=== PATIENT | male | born 1995 | race Caucasian/White ===

== ENCOUNTER 2016-04-09 09:34 | Day surgery (SDC) | payer OTHER ==
[~2016-04-09] VITALS: Ht 182.9 cm; Wt 77.1 kg
[~2016-04-09 09:34] MED LIST: CEFU250T PO
--- OUTSIDE RECORDS SUMMARY | 2016-04-09 09:41 | XMS REPORT | Continuity of Care Document ---
Author Author [facility] Organization [facility] Address Unknown Phone Unavailable Care Team Providers Care Oral Surgery Technician Name Role Phone NO, LOCAL PHYSICIAN PCP Unavailable Insurance Providers Payer Name Policy Number Subscriber Name Relationship Self Pay Breanne French 19 Self / Same As Patient Advance Directives Directive Response Recorded Date/Time Advance Directives No 09/28/15 7:10pm Resuscitation Status Full Code 09/28/15 7:10pm Chief Complaint and Reason for Visit Chief Complaint General Problems/Pain Reason for Visit [id number] Problems Active Problems Medical Problem Onset Date Status Inguinal adenopathy Unknown Acute UTI (urinary tract infection) Unknown Acute Medications Current Home Medications Medication Dose Units Route Directions Days/Qty Instructions Start Date Cefuroxime Axetil 250 Mg 250 Mg Oral Every 12 Hours 20 09/28/15 Social History Social History Problem Response Recorded Date/Time Alcohol Use Denies Use 09/28/2015 7:10pm Recreational Drug Use No 09/28/2015 7:10pm Recent Foreign Travel No 09/28/2015 7:10pm Recent Infectious Disease Exposure No 09/28/2015 7:10pm Hospitalization with Isolation Denies 09/28/2015 7:10pm Smoking Status Never a Smoker 09/28/2015 7:10pm Query Response Start Date Stop Date Smoking Status Never a Smoker Hospital Discharge Instructions No hospital discharge instructions. Plan of Care Discharge Date 09/28/15 8:56pm Disposition 01 HOME, SELF-CARE Condition at Discharge Stable Instructions/Education Provided Urinary Tract Infection in Men (ED) Lymphadenopathy (ED) Prescriptions See Medication Section Referrals LOPEZ BURNETT MD - Additional Instructions/Education All discharge instructions reviewed with patient and/or family. Voiced understanding. RECOMMEND 2 ALEVE EVERY 8 HOURS FOR LYMPH NODE SWELLING AND PAIN. TAKE UNTIL COMPLETELY BETTER. WILL NEED TO FOLLOW UP WITH DR. BURNETT (CONTACT INFO GIVEN) IF SYMPTOMS PERSIST DESPITE PRESCRIBED TREATMENT. Functional Status No functional status results. Allergies, Adverse Reactions, Alerts No known allergies. Immunizations No immunization records. Vital Signs Acute Vital Signs Vital Response Date/Time Temperature (Fahrenheit) 97.7 degrees F (97.6 - 99.5) 09/28/2015 7:10pm Temperature (Calculated Celsius) 36.92852 degrees C (36.4 - 37.5) 09/28/2015 7:10pm Temperature Source Temporal 09/28/2015 7:10pm Pulse Rate (Adolescent 12-19yrs) 97 bpm (56 - 106) 09/28/2015 8:56pm O2 Sat by Pulse Oximetry 97 % (88 - 100) 09/28/2015 8:56pm Respiratory Rate (Adolescent 12-19yrs) 18 bpm (15 - 20) 09/28/2015 8:56pm Blood Pressure / Blood Pressure Systolic (Adolescent 12-19yrs) 126 mm Hg (115 - 120) 2015 8:56pm Pain Numeric Pain Scale 1 09/28/2015 8:56pm Height (Feet) 6 feet 09/28/2015 7:10pm Height (Calculated Centimeters) 182.656761 cm 09/28/2015 7:10pm Weight (Pounds) 165 pounds 09/28/2015 7:10pm Weight (Calculated Kilograms) 74.115657 kilograms 09/28/2015 7:10pm Height 6 ft 0 in Weight 165 lb Body Mass Index 22.4 kg/m^2 Results Laboratory Results Test Name Result Units Flags Reference Collection Date/Time Result Date/ Time Comments White Blood Count 6.7 10^3/uL 4.3-11.0 09/28/2015 7:54pm 09/28/2015 8: 06pm Red Blood Count 5.23 10^6/uL 4.35-5.85 09/28/2015 7:54pm 09/28/2015 8: 06pm Hemoglobin 15.7 G/DL 13.3-17.7 09/28/2015 7:54pm 09/28/2015 8:06pm Hematocrit 43 % 40-54 09/28/2015 7:54pm 09/28/2015 8:06pm Mean Corpuscular Volume 82 FL 80-99 09/28/2015 7:54pm 09/28/2015 8: 06pm Mean Corpuscular Hemoglobin 30 PG 25-34 09/28/2015 7:54pm 09/28/2015 8: 06pm Mean Corpuscular Hemoglobin Concent 37 G/DL H 32-36 09/28/2015 7:54pm 8:06pm Red Cell Distribution Width 12.8 % 10.0-14.5 09/28/2015 7:54pm 2015 8:06pm Platelet Count 298 10^3/uL 130-400 09/28/2015 7:54pm 09/28/2015 8:06pm Mean Platelet Volume 10.5 FL H 7.4-10.4 09/28/2015 7:54pm 09/28/2015 8: 06pm Neutrophils (%) (Auto) 56 % 42-75 09/28/2015 7:54pm 09/28/2015 8:06pm Lymphocytes (%) (Auto) 30 % 12-44 09/28/2015 7:54pm 09/28/2015 8:06pm Monocytes (%) (Auto) 13 % H 0-12 09/28/2015 7:54pm 09/28/2015 8:06pm Eosinophils (%) (Auto) 1 % 0-10 09/28/2015 7:54pm 09/28/2015 8:06pm Basophils (%) (Auto) 0 % 0-10 09/28/2015 7:54pm 09/28/2015 8:06pm Neutrophils # (Auto) 3.7 X 10^3 1.8-7.8 09/28/2015 7:54pm 09/28/2015 8: 06pm Lymphocytes # (Auto) 2.0 X 10^3 1.0-4.0 09/28/2015 7:54pm 09/28/2015 8: 06pm Monocytes # (Auto) 0.9 X 10^3 0.0-1.0 09/28/2015 7:54pm 09/28/2015 8: 06pm Eosinophils # (Auto) 0.1 10^3/uL 0.0-0.3 09/28/2015 7:54pm 09/28/2015 8 :06pm Basophils # (Auto) 0.0 10^3/uL 0.0-0.1 09/28/2015 7:54pm 09/28/2015 8: 06pm Urine Color YELLOW 09/28/2015 7:54pm 09/28/2015 8:37pm Urine Clarity SLIGHTLY CLOUDY 09/28/2015 7:54pm 09/28/2015 8:37pm Urine pH 6 5-9 09/28/2015 7:54pm 09/28/2015 8:37pm Urine Specific [place] 1.020 1.016-1.022 09/28/2015 7:54pm 2015 8:37pm Urine Protein 2+ * NEGATIVE 09/28/2015 7:54pm 09/28/2015 8:37pm Urine Glucose (UA) NEGATIVE NEGATIVE 09/28/2015 7:54pm 09/28/2015 8: 37pm Urine RBC (Auto) NEGATIVE NEGATIVE 09/28/2015 7:54pm 09/28/2015 8: 37pm Urine Ketones 1+ * NEGATIVE 09/28/2015 7:54pm 09/28/2015 8:37pm Urine Nitrite NEGATIVE NEGATIVE 09/28/2015 7:54pm 09/28/2015 8:37pm Urine Bilirubin NEGATIVE NEGATIVE 09/28/2015 7:54pm 09/28/2015 8: 37pm Urine Urobilinogen 1 MG/DL NORMAL 09/28/2015 7:54pm 09/28/2015 8:37pm Urine Leukocyte Esterase 2+ * NEGATIVE 09/28/2015 7:54pm 09/28/2015 8: 37pm Urine RBC NONE /HPF 09/28/2015 7:54pm 09/28/2015 8:37pm Urine WBC 25-50 /HPF * 09/28/2015 7:54pm 09/28/2015 8:37pm Urine Bacteria FEW /HPF * 09/28/2015 7:54pm 09/28/2015 8:37pm Urine Crystals NONE /LPF 09/28/2015 7:54pm 09/28/2015 8:37pm Urine Casts NONE /LPF 09/28/2015 7:54pm 09/28/2015 8:37pm Urine Mucus MODERATE /LPF * 09/28/2015 7:54pm 09/28/2015 8:37pm Urine Culture Indicated YES 09/28/2015 7:54pm 09/28/2015 8:37pm C-Reactive Protein High Sensitivity 0.74 MG/DL H 0.00-0.50 09/28/2015 7: 54pm 09/28/2015 8:25pm Procedures No known history of procedures. Encounters Encounter Location Arrival/Admit Date Discharge/Depart Date Attending Provider Departed Emergency Room [facility] 09/28/15 6:51pm 09/27 8:56pm JERRICA SHELDON DO Recent Diagnosis
[2016-04-09 10:27] LABS: BILIRUBIN,URINE NEGATIVE (NEGATIVE); KETONES,URINE NEGATIVE (NEGATIVE); LEUKOCYTE ESTERASE ,URINE NEGATIVE (NEGATIVE); NITRITE,URINE NEGATIVE (NEGATIVE); PH,URINE 6.5 (5-9); PROTEIN,URINE NEGATIVE (NEGATIVE); UROBILINOGEN,URINE NORMAL (NORMAL)
[2016-04-09 10:36] LABS: BASOPHILS # (AUTO) 0.1 10^3/uL (0.0-0.1); BASOPHILS % (AUTO) 1 % (0-10); EOSINOPHILS # (AUTO) 0.1 10^3/uL (0.0-0.3); EOSINOPHILS % (AUTO) 1 % (0-10); LYMPHOCYTES # (AUTO) 1.8 X 10^3 (1.0-4.0); LYMPHOCYTES % (AUTO) 21 % (12-44); MEAN CORPUSCULAR HEMOGLOBIN 29 PG (25-34); MEAN CORPUSCULAR HGB CONC 35 G/DL (32-36); MEAN CORPUSCULAR VOLUME 83 FL (80-99); MEAN PLATELET VOLUME 10.3 FL (7.4-10.4); MONOCYTES # (AUTO) 0.6 X 10^3 (0.0-1.0); MONOCYTES % (AUTO) 7 % (0-12); NEUTROPHILS # (AUTO) 5.8 X 10^3 (1.8-7.8); NEUTROPHILS % (AUTO) 70 % (42-75); PLATELET COUNT 268 10^3/uL (130-400); RED BLOOD COUNT 5.13 10^6/uL (4.35-5.85); RED CELL DISTRIBUTION WIDTH 13.6 % (10.0-14.5); WHITE BLOOD COUNT 8.3 10^3/uL (4.3-11.0)
[2016-04-09 10:54] LABS: ALANINE AMINOTRANSFERASE 45 U/L (0-55); ALBUMIN 4.6 G/DL (3.2-4.5); AMYLASE 92 U/L (25-125); ANION GAP 7 MMOL/L (5-14); ASPARTATE AMINO TRANSFERASE 29 U/L (5-34); BILIRUBIN,TOTAL 0.9 MG/DL (0.1-1.0); BLOOD UREA NITROGEN 13 MG/DL (7-18); BUN/CREATININE RATIO 15; CALCIUM 9.5 MG/DL (8.5-10.1); CARBON DIOXIDE 25 MMOL/L (21-32); CHLORIDE 106 MMOL/L (98-107); CREATININE SERUM 0.88 MG/DL (0.60-1.30); GFR ESTIMATED > 60; GLUCOSE 97 MG/DL (70-105); POTASSIUM 3.6 MMOL/L (3.6-5.0); SODIUM 138 MMOL/L (135-145); TOTAL PROTEIN 7.3 G/DL (6.4-8.2)
[2016-04-09] MEDS ORDERED: NS 100 ML (IVPB) BAG IV ONE (11:00)
[2016-04-09] MEDS ORDERED: KETOROLAC 30 MG/ML VIAL IVP ONE (11:00)
[2016-04-09] MEDS ORDERED: IOHEXOL 350 MG/ML 100 ML (OMNIPAQUE 350) VIAL IV ONE (11:00)
--- NOTE | 2016-04-09 11:02 | ED Abdominal Pain ---
General Chief Complaint: Abdominal/GI Problems Stated Complaint: LOWER RIGHT SIDE PAIN Source of Information: Patient Exam Limitations: No Limitations History of Present Illness Time Seen By Provider: 11:00 Initial Comments To ER with right lower quadrant abdominal pain. This began last night awakening him from sleep at about 1 or 2 a.m. Pain is become so intense that he 's nearly vomited a few times. He then was able to go back to sleep and awakened again this morning at around 8 or 9 and pain is again present quite intense. No diarrhea. No fevers or chills. No dysuria. No constipation last bowel movement was this morning and was normal. Timing/Duration: 12-24 Hours Severity/Quality: Moderate Location: RLQ Radiation: No Radiation Activities at Onset: None Associated Symptoms: Nausea/Vomiting Allergies and Home Medications Allergies Coded Allergies: No Known Drug Allergies (Unverified , 09/28/15) Home Medications No Active Prescriptions or Reported Meds Review of Systems Constitutional: see HPI EENTM: No Symptoms Reported Respiratory: No Symptoms Reported Cardiovascular: No Symptoms Reported Gastrointestinal: See HPI Abdominal PainDenies Diarrhea, Denies Nausea Genitourinary: No Symptoms Reported Musculoskeletal: no symptoms reported Skin: no symptoms reported Psychiatric/Neurological: No Symptoms Reported Endocrine: No Symptoms Reported Past Exgtmxc-Orarcy-Weoeln Hx Patient Social History Recent Foreign Travel: No Contact w/Someone Who Travel: No Surgeries HX Surgeries: No Respiratory Hx Respiratory Disorders: No Cardiovascular Hx Cardiac Disorders: No Neurological Hx Neurological Disorders: No Reproductive System Hx Reproductive Disorders: No Genitourinary Hx Genitourinary Disorders: No Gastrointestinal Hx Gastrointestinal Disorders: No Musculoskeletal Hx Musculoskeletal Disorders: No Endocrine Hx Endocrine Disorders: No HEENT HX ENT Disorders: No Cancer Hx Cancer: No Psychosocial Hx Psychiatric Problems: No Integumentary HX Skin/Integumentary Disorder: No Blood Transfusions Hx Blood Disorders: No Physical Exam Vital Signs VS - Last 72 Hours, by Label 04/09/16 04/09/16 04/09/16 10:10 10:15 11:09 Temp 97.5 96.9 Pulse 72 Resp 16 B/P 117/80 Pulse Ox 98 Capillary Refill : General Appearance: WD/WN no apparent distress HEENT: PERRL/EOMI normal ENT inspection Neck: non-tender full range of motion Respiratory: no respiratory distress no accessory muscle use Gastrointestinal: normal bowel sounds soft rebound tenderness (right lower quadrant) Extremities: normal range of motion non-tender Neurologic/Psychiatric: alert normal mood/affect oriented x 3 Skin: normal color warm/dry Progress/Results/Core Measures Results/Orders Lab Results Laboratory Tests Test 04/09/16 10:20 04/09/16 10:30 Range/Units Urine Bacteria NEGATIVE /HPF Urine Bilirubin NEGATIVE NEGATIVE Urine Casts NONE /LPF Urine Clarity CLEAR Urine Color YELLOW Urine Crystals NONE /LPF Urine Culture Indicated NO Urine Glucose (UA) NEGATIVE NEGATIVE Urine Ketones NEGATIVE NEGATIVE Urine Leukocyte Esterase NEGATIVE NEGATIVE Urine Mucus MODERATE H /LPF Urine Nitrite NEGATIVE NEGATIVE Urine Protein NEGATIVE NEGATIVE Urine RBC NONE /HPF Urine RBC (Auto) NEGATIVE NEGATIVE Urine Specific [place] 1.020 1.016-1.022 Urine Urobilinogen NORMAL NORMAL MG/DL Urine WBC NONE /HPF Urine pH 6.5 5-9 Alanine Aminotransferase (ALT/SGPT) 45 0-55 U/L Albumin 4.6 H 3.2-4.5 G/DL Alkaline Phosphatase 82 40-136 U/L Amylase Level 92 25-125 U/L Anion Gap 7 5-14 MMOL/L Aspartate Amino Transf (AST/SGOT) 29 5-34 U/L BUN/Creatinine Ratio 15 Basophils # (Auto) 0.1 0.0-0.1 10^3/uL Basophils (%) (Auto) 1 0-10 % Blood Urea Nitrogen 13 7-18 MG/DL Calcium Level 9.5 8.5-10.1 MG/DL Carbon Dioxide Level 25 21-32 MMOL/L Chloride Level 106 98-107 MMOL/L Creatinine 0.88 0.60-1.30 MG/DL Eosinophils # (Auto) 0.1 0.0-0.3 10^3/uL Eosinophils (%) (Auto) 1 0-10 % Estimat Glomerular Filtration Rate > 60 Glucose Level 97 70-105 MG/DL Hematocrit 43 40-54 % Hemoglobin 15.0 13.3-17.7 G/DL Lymphocytes # (Auto) 1.8 1.0-4.0 X 10^3 Lymphocytes (%) (Auto) 21 12-44 % Mean Corpuscular Hemoglobin 29 25-34 PG Mean Corpuscular Hemoglobin Concent 35 32-36 G/DL Mean Corpuscular Volume 83 80-99 FL Mean Platelet Volume 10.3 7.4-10.4 FL Monocytes # (Auto) 0.6 0.0-1.0 X 10^3 Monocytes (%) (Auto) 7 0-12 % Neutrophils # (Auto) 5.8 1.8-7.8 X 10^3 Neutrophils (%) (Auto) 70 42-75 % Platelet Count 268 130-400 10^3/uL Potassium Level 3.6 3.6-5.0 MMOL/L Red Blood Count 5.13 4.35-5.85 10^6/uL Red Cell Distribution Width 13.6 10.0-14.5 % Sodium Level 138 135-145 MMOL/L Total Bilirubin 0.9 0.1-1.0 MG/DL Total Protein 7.3 6.4-8.2 G/DL White Blood Count 8.3 4.3-11.0 10^3/uL My Orders Orders-XENIA PRIETO [employer]ULT[employer] Ct Abd/Pelv W (Appendicitis) (04/09/16 10:58) Ketorolac Injection (Toradol Injection) (04/09/16 11:00) Iohexol Injection (Omnipaque 350 Mg/Ml 1 (04/09/16 11:00) Ns (Ivpb) (Sodium Chloride 0.9% Ivpb Bag (04/09/16 11:00) Medications Given in ED Current Medications Medications Dose Ordered Sig/Mukul Route Start Time Stop Time Status Last Admin Dose Admin Iohexol 100 ml ONCE ONCE IV 04/09/16 11:00 04/09/16 11:10 DC 04/09/16 11:18 100 ML Ketorolac Tromethamine 30 mg ONCE ONCE IVP 04/09/16 11:00 04/09/16 11:01 DC 04/09/16 11:09 30 MG Sodium Chloride 100 ml ONCE ONCE IV 04/09/16 11:00 04/09/16 11:10 DC 04/09/16 11:18 80 ML Vital Signs/I&O Vital Sign - Last 12Hours 04/09/16 04/09/16 04/09/16 10:10 10:15 11:09 Temp 97.5 96.9 Pulse 72 Resp 16 B/P 117/80 Pulse Ox 98 Diagnostic Imaging Diagonstic Imaging: CT Comments NAME: BREANNE ZAMORA MED REC#: [id number] PT STATUS: REG ER : 1995 PHYSICIAN: XENIA PRIETO APRN ADMIT DATE: 04/09/16/ER Draft Date of Exam:04/09/16 CT ABD/PELV W (APPENDICITIS) PROCEDURE: CT abdomen and pelvis with contrast, rule out appendicitis. TECHNIQUE: Multiple contiguous axial images were obtained through the abdomen and pelvis after the administration of intravenous contrast. INDICATION: Right lower quadrant abdominal pain. Nausea. COMPARISON: None FINDINGS: Included views of the lung bases are clear. CT ABDOMEN: There is acute appendicitis. The appendix is abnormally distended measuring 14 mm in diameter. Multiple appendicoliths are noted within the lumen of the appendix. There is also mild stranding of the periappendiceal fat. Small amount of free fluid is noted within the lower pelvis. There is no loculated fluid collection or free air. There is no pneumatosis nor portal venous gas. Proximal small bowel loops are nondistended. The kidneys, adrenal glands, spleen, pancreas, and liver and have a normal CT appearance. No abnormal mesenteric or retroperitoneal adenopathy is seen. Bony structures show no acute abnormalities. CT PELVIS: Again, there is trace free fluid within the lower pelvis. There is no loculated fluid collection or free air. Urinary bladder is grossly unremarkable. No abnormal lymph nodes are seen. Bony structures show no acute abnormalities. IMPRESSION: 1. Acute appendicitis. 2. Small amount of free fluid within the pelvis, but no free air or loculated air-fluid collection. Report was called to Xenia Prieto APRN [facility] ER by nathaniel at 11:55 am. Dictated on workstation # [id number] Dict: 04/09/16 1145 Trans: 04/09/16 1153 NATHANIEL [id number] Interpreted by: MEHDI CELESTE Electronically signed by: Departure Communication Progress Notes 1206-I spoke with Dr. Tsang who will be down to see the patient. Impression Impression: Primary Impression: Acute appendicitis Qualified Code: K35.3 - Acute appendicitis with localized peritonitis Disposition: ADMITTED INPATIENT Condition: Stable Decision to Admit Reason: Admit from ER (General) Decision to Admit/Date: Apr 09, 2016 Time/Decision to Admit Time: 11:45 Departure-Patient Inst. Referrals: ALVIN DEGROOT MD (PCP/Family) Primary Care Physician Scripts No Active Prescriptions or Reported Meds XENIA PRIETO APRN Apr 09, 2016 11:02
--- NOTE | 2016-04-09 11:54 | Diagnostic Imaging Report ---
PROCEDURE: CT abdomen and pelvis with contrast, rule out appendicitis. TECHNIQUE: Multiple contiguous axial images were obtained through the abdomen and pelvis after the administration of intravenous contrast. INDICATION: Right lower quadrant abdominal pain. Nausea. COMPARISON: None FINDINGS: Included views of the lung bases are clear. CT ABDOMEN: There is acute appendicitis. The appendix is abnormally distended measuring 14 mm in diameter. Multiple appendicoliths are noted within the lumen of the appendix. There is also mild stranding of the periappendiceal fat. Small amount of free fluid is noted within the lower pelvis. There is no loculated fluid collection or free air. There is no pneumatosis nor portal venous gas. Proximal small bowel loops are nondistended. The kidneys, adrenal glands, spleen, pancreas, and liver and have a normal CT appearance. No abnormal mesenteric or retroperitoneal adenopathy is seen. Bony structures show no acute abnormalities. CT PELVIS: Again, there is trace free fluid within the lower pelvis. There is no loculated fluid collection or free air. Urinary bladder is grossly unremarkable. No abnormal lymph nodes are seen. Bony structures show no acute abnormalities. IMPRESSION: 1. Acute appendicitis. 2. Small amount of free fluid within the pelvis, but no free air or loculated air-fluid collection. Report was called to Shan Prieto APRN [facility] ER by kandis at 11:55 am. Dictated by: Dictated on workstation # [id number]
--- OUTSIDE RECORDS SUMMARY | 2016-04-09 12:48 | XMS REPORT | Continuity of Care Document ---
Author Author [facility] Organization [facility] Address Unknown Phone Unavailable Care Team Providers Care Pararescue Manager Name Role Phone NO, LOCAL PHYSICIAN PCP Unavailable Insurance Providers Payer Name Policy Number Subscriber Name Relationship Self Pay Breanne French 18 Self / Same As Patient Advance Directives Directive Response Recorded Date/Time Advance Directives No 09/28/15 7:10pm Resuscitation Status Full Code 09/28/15 7:10pm Chief Complaint and Reason for Visit Chief Complaint General Problems/Pain Reason for Visit [id number] Problems Active Problems Medical Problem Onset Date [...] WILL NEED TO FOLLOW UP WITH DR. BUNRETT (CONTACT INFO GIVEN) IF SYMPTOMS PERSIST DESPITE PRESCRIBED TREATMENT. Functional Status No functional status results. Allergies, Adverse Reactions, Alerts No known allergies. Immunizations No immunization records. Vital Signs Acute Vital Signs Vital Response Date/Time Temperature (Fahrenheit) 97.7 degrees F (97.6 - 99.5) 09/28/2015 7:10pm Temperature (Calculated Celsius) 36.29074 degrees C (36.4 - 37.5) 09/28/2015 7:10pm [...] 6 feet 09/28/2015 7:10pm Height (Calculated Centimeters) 182.213997 cm 09/28/2015 7:10pm Weight (Pounds) 165 pounds 09/28/2015 7:10pm Weight (Calculated Kilograms) 74.816183 kilograms 09/28/2015 7:10pm Height 6 ft 0 [...] 5-9 09/28/2015 7:54pm 09/28/2015 8:37pm Urine Specific [place] 1.020 1.016-1.022 09/28/2015 7:54pm 2015 8:37pm Urine [...] Date Attending Provider Departed Emergency Room [facility] 09/28/15 6:51pm 09/27 8:56pm JERRICA SHELDON DO Recent Diagnosis
--- OUTSIDE RECORDS SUMMARY | 2016-04-09 12:48 | XMS REPORT | Continuity of Care Document ---
Author Author [facility] Organization [facility] Address Unknown Phone Unavailable Care Team Providers Care Napper Fixer Name Role Phone NO, LOCAL PHYSICIAN PCP Unavailable Insurance Providers Payer Name Policy Number Subscriber Name Relationship Self Pay Breanne French 19 Self / Same As Patient Advance Directives Directive Response Recorded Date/Time Advance Directives No 09/28/15 7:10pm Resuscitation Status Full Code 09/28/15 7:10pm Chief Complaint and Reason for Visit Chief Complaint General Problems/Pain Reason for Visit [id number] Problems Active Problems Medical Problem Onset Date [...] - 99.5) 09/28/2015 7:10pm Temperature (Calculated Celsius) 36.30699 degrees C (36.4 - 37.5) 09/28/2015 7:10pm [...] 6 feet 09/28/2015 7:10pm Height (Calculated Centimeters) 182.031767 cm 09/28/2015 7:10pm Weight (Pounds) 165 pounds 09/28/2015 7:10pm Weight (Calculated Kilograms) 74.695735 kilograms 09/28/2015 7:10pm Height 6 ft 0 [...] 5-9 09/28/2015 7:54pm 09/28/2015 8:37pm Urine Specific [place] 1.020 1.016-1.022 09/28/2015 7:54pm 2015 8:37pm Urine [...] Date Attending Provider Departed Emergency Room [facility] 09/28/15 6:51pm 09/27 8:56pm JERRICA SHELDON DO Recent Diagnosis
[2016-04-09] MEDS ORDERED: LIDOCAINE/EPI 1%-1:100,000 (XYLOCAINE) 20ML ONE (13:07)
[2016-04-09] MEDS ORDERED: fentaNYL INJECTION 100 MCG/2 ML AMP ONE ×2 (13:15→14:08)
[2016-04-09] MEDS ORDERED: MIDAZOLAM 2 MG/2 ML (VERSED) VIAL ONE (13:16)
[2016-04-09] MEDS ORDERED: FAMOTIDINE 20MG/2ML IV (PEPCID) ONE (13:19)
[2016-04-09] MEDS ORDERED: ceFAZolin 2 GM IV (SDC ONLY) 50 ML ONE (13:19)
--- NOTE | 2016-04-09 13:26 | History & Physical-Surgical ---
History of Present Illness History of Present Illness Reason for visit/HPI Surgery consulted regarding appendicitis. HPI: Pt presented to ER with right lower quadrant abdominal pain. This began last night awakening him from sleep at about 1 am, then again at 4 am and hasn' t been able to sleep since then. Pain is become so intense that he's "dry heaved" in car on way to hospital. Pt rated the pain as a 10- out of 10 at its worst, its a 3 right now. He states it feels like someone is jabbing a knife in there and twisting it. It started all over lower abdomen and now he states it is all in right lower quadrant. No diarrhea. No fevers or chills. No dysuria. No constipation last bowel movement was this morning and was normal. Timing/Duration: 12-24 Hours Severity/Quality: Severe Location: RLQ Radiation: No Radiation Activities at Onset: None Associated Symptoms: Nausea/Vomiting Date of Admission I consulted on this patient on 04/09/16 13:21 Attending Physician New [place] DO Admitting Physician Sindy Philip MD Consult Allergies and Home Medications Allergies Coded Allergies: No Known Drug Allergies (Unverified , 09/28/15) Home Medications No Active Prescriptions or Reported Meds Past Ljhcuuo-Lluufs-Nxbrff Hx Patient Social History Alcohol Use: Denies Use Recreational Drug Use: No Smoking Status: Never a Smoker Recent Foreign Travel: No Contact w/Someone Who Travel: No Recent Infectious Disease Expo: No Recent Hopitalizations: No Physical Abuse Screen: No Sexual Abuse: No Surgeries HX Surgeries: No Respiratory Hx Respiratory Disorders: No Cardiovascular Hx Cardiac Disorders: No Neurological Hx Neurological Disorders: No Reproductive System Hx Reproductive Disorders: No Genitourinary Hx Genitourinary Disorders: No Gastrointestinal Hx Gastrointestinal Disorders: No Musculoskeletal Hx Musculoskeletal Disorders: No Endocrine Hx Endocrine Disorders: No HEENT HX ENT Disorders: No Cancer Hx Cancer: No Psychosocial Hx Psychiatric Problems: No Integumentary HX Skin/Integumentary Disorder: No Blood Transfusions Hx Blood Disorders: No Family Medical History Significant Family History: Heart Disease (grandmother), Diabetes (grandmother) Constitutional: No chills, No diaphoresis, No dizziness EENTM: No blurred vision, No double vision, No ear pain, No eye pain Respiratory: No cough, No dyspnea on exertion, No hemoptysis Cardiovascular: No chest pain, No edema, No palpitations Gastrointestinal: RLQ see HPI Genitourinary: No discharge, No dysuria, No frequency Musculoskeletal: No back pain, No gout, No joint pain Psychiatric/Neurological: Denies Anxiety, Denies Depressed, Denies Headache, Denies Paresthesia Other No endocrine problems, no heat or cold intolerance. No chronic illnesses, no bleeding problems. Physical Exam Vital Signs Vital Sign - Last 12Hours 04/09/16 04/09/16 04/09/16 10:10 10:15 13:11 Temp 97.5 Pulse 72 Resp 16 B/P 117/80 Pulse Ox 98 O2 Delivery Room Air Capillary Refill : General Appearance: WD/WN Mild Distress Eyes: Bilateral Eye EOMI, Bilateral Eye PERRL HEENT: Pharynx NormalNo Pale Conjunctivae (L), No Pale Conjunctivae (R), No Scleral Icterus (L), No Scleral Icterus (R) Neck: Full Range of Motion Normal Inspection Non Tender Supple Respiratory: Chest Non Tender Lungs Clear Normal Breath Sounds No Accessory Muscle Use No Respiratory Distress Cardiovascular: Regular Rate, Rhythm No JVD No Murmur Gastrointestinal: Normal Bowel Sounds No Organomegaly No Pulsatile Mass Guarding Tenderness Rectal: Deferred Back: No CVA Tenderness No Vertebral Tenderness Extremity: Normal Capillary Refill Normal Inspection Non Tender No Calf Tenderness Neurologic/Psychiatric: Alert Oriented x3 No Motor/Sensory Deficits Normal Mood/Affect injury prevention coordinator II-XII Norm as Tested Skin: Normal Color Warm/Dry Lymphatic: No Adenopathy Data Review Labs Laboratory Tests 04/09/16 10:20: Urine Bacteria NEGATIVE, Urine Bilirubin NEGATIVE, Urine Casts NONE, Urine Clarity CLEAR, Urine Color YELLOW, Urine Crystals NONE, Urine Culture Indicated NO, Urine Glucose (UA) NEGATIVE, Urine Ketones NEGATIVE, Urine Leukocyte Esterase NEGATIVE, Urine Mucus MODERATEH, Urine Nitrite NEGATIVE, Urine Protein NEGATIVE, Urine RBC NONE, Urine RBC (Auto) NEGATIVE, Urine Specific [place] 1.020, Urine Urobilinogen NORMAL, Urine WBC NONE, Urine pH 6.5 04/09/16 10:30: Alanine Aminotransferase (ALT/SGPT) 45, Albumin 4.6H, Alkaline Phosphatase 82, Amylase Level 92, Anion Gap 7, Aspartate Amino Transf (AST/SGOT) 29, BUN/ Creatinine Ratio 15, Basophils # (Auto) 0.1, Basophils (%) (Auto) 1, Blood Urea Nitrogen 13, Calcium Level 9.5, Carbon Dioxide Level 25, Chloride Level 106, Creatinine 0.88, Eosinophils # (Auto) 0.1, Eosinophils (%) (Auto) 1, Estimat Glomerular Filtration Rate > 60, Glucose Level 97, Hematocrit 43, Hemoglobin 15.0, Lymphocytes # (Auto) 1.8, Lymphocytes (%) (Auto) 21, Mean Corpuscular Hemoglobin 29, Mean Corpuscular Hemoglobin Concent 35, Mean Corpuscular Volume 83, Mean Platelet Volume 10.3, Monocytes # (Auto) 0.6, Monocytes (%) (Auto) 7, Neutrophils # (Auto) 5.8, Neutrophils (%) (Auto) 70, Platelet Count 268, Potassium Level 3.6, Red Blood Count 5.13, Red Cell Distribution Width 13.6, Sodium Level 138, Total Bilirubin 0.9, Total Protein 7.3, White Blood Count 8.3 Assessment/Plan Assessment/Plan Assessment/Plan Acute Appendicitis --IV fluids, IV ABX, to OR for Laparoscopic Appendectomy possible open Discussed surgery with pt. All risks and complications; not limited to pain, bleeding, infection, scar and damage to bowel. Possible need for further surgery. All questions answered to his and his family's satisfaction. Clinical Quality Measures DVT/VTE Risk/Contraindication: Risk Factor Score Per Nursin RFS Level Per Nursing on Admit: 1=Low/No VTE PPX NEW [place] DO Apr 09, 2016 13:26
[2016-04-09] MEDS: LACTATED RINGERS 1,000 ML IV PRN ×2 (13:30→14:13)
[2016-04-09] MEDS ORDERED: FAMOTIDINE 20MG/2ML IV (PEPCID) IV ONE (13:30)
[2016-04-09] MEDS ORDERED: ceFAZolin INJECTION 2,000 MG in NS (IVPB) 50 ML IV ONE (13:45)
[2016-04-09] MEDS ORDERED: morphine INJ 10 MG/ML 1ML (SYR OR VIAL) ONE (14:02)
[2016-04-09] MEDS ORDERED: ROCURONIUM 50 MG/5 ML (ZEMURON) VIAL IV ONE (14:08)
[2016-04-09] MEDS ORDERED: SEVOFLURANE (ULTANE) 15 ML INHAL SOLN ONE (14:08)
[2016-04-09] MEDS ORDERED: ONDANSETRON 4 MG/2 ML (SDV) Z0FRAN ONE (14:08)
[2016-04-09] MEDS ORDERED: proPOfol 200 MG/20 ML (DIPRIVAN) VIAL IV ONE (14:08)
[2016-04-09] MEDS ORDERED: LACTATED RINGERS 2,000 ML IV ONE (14:08)
[2016-04-09] MEDS ORDERED: SUCCINYLCHOLINE INJ 100 MG/5 ML SYR ONE (14:08)
[2016-04-09] MEDS ORDERED: DEXAMETHASONE PF 10 MG/ML (DECADRON) VIAL ONE (14:08)
[2016-04-09] MEDS ORDERED: GLYCOPYRROLATE 0.2 MG/ML (ROBINUL) 2 ML VIAL ONE (14:11)
[2016-04-09] MEDS ORDERED: NEOSTIGMINE (BLOXIVERZ ) 1 MG/1ML 10 ML VIAL ONE (14:11)
--- NOTE | 2016-04-09 14:23 | Progress Note-Post Operative ---
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
[2016-04-09] MEDS ORDERED: HYDR-3812 PO (14:24)
--- NOTE | 2016-04-09 14:26 | Discharge Inst-Surgical ---
Discharge Inst-Surgical Depart Medication/Instructions New, Converted or Re-Newed RX: RX Given to Pt/Family Patient Instructions Follow up Appt: Make appointment for 1 week. Call [phone] Instructions: No lifting greater than 10 pounds. For at least 4 weeks. No strenuous activity. May shower in 24 hours, no tub bath or soaking. Use incentive spirometer at home as directed. No Smoking Skin/Wound Care: May remove bandages. You need to leave the white strips over incision on they will fall off on their own. Symptoms to Report: Appetite Changes, Extremity Discoloration, Numbness/Tingling, Swelling Increased , Bleeding Excessive, Eyesight Changes, Pain Increased, Urine Color Change, Constipation(Persistent), Fever over 101 degree F, Pain/Pressure in chest, Urinating Difficulty, Cough Up/Vomit Blood, Heart Beat Irreg/Pounding, Pain/ Pressure in jaw, Vaginal Bleeding Increase, Cramps in feet or legs, Lightheadedness, Pain/Pressure in shoulder, Diarrhea(Persistent), Memory Changes Suddenly, Questions/Concerns, Weight gain consecutive days, Dizziness/ Fainting, Nausea/Vomiting, Shortness of Breath, Weight gain over 2 pounds If questions or concerns contact your physician Or seek help at emergency department. Activity Activity as Tolerated: No Per instuctions Driving Instructions: No Driving/Refer to Dr. Crisostomo Discharge Diet: Soft Diet (increase as tolerated) Skin/Wound Care Infection Signs and Symptoms: Increased Redness, Foul Odor of Wound, Increased Drainage, Increased Swelling, Temperature Above 101 F Bathing Instructions: Shower Stitches/[place]/Dermabond Dis: Dermabond Ice Pack: Ice On and Off Site BRENNEN BROUSSARD DO Apr 09, 2016 14:26
[2016-04-09] MEDS ORDERED: MEPERIDINE (DEMEROL) INJ 50 MG/ML IVP PRN (14:45)
[2016-04-09] MEDS ORDERED: HYDROmorphone (DILAUDID) 2 MG/ML VIAL IVP PRN (14:45)
[2016-04-09] MEDS ORDERED: morphine INJ 10 MG/ML 1ML (SYR OR VIAL) IVP PRN (14:45)
[2016-04-09] MEDS ORDERED: ONDANSETRON 4 MG/2 ML (SDV) Z0FRAN IVP PRN (14:45)
--- NOTE | 2016-04-10 09:54 | OPERATIVE REPORT ---
PROCEDURE PHYSICIAN: BRENNEN BROUSSARD DATE OF PROCEDURE: 04/09/2016 PREOPERATIVE DIAGNOSIS: Acute appendicitis. POSTOPERATIVE DIAGNOSIS: Acute appendicitis. PROCEDURE: Laparoscopic appendectomy. SURGEON: Dr. Broussard FACTORY SUPERVISOR: Medical student Ulises Omalley ANESTHESIA: General endotracheal by Dr. Nieves. SPECIMEN: Appendix. BLOOD LOSS: Scant. FLUIDS: Per anesthesia. POSTOPERATIVE CONDITION: Stable. INDICATION FOR THE PROCEDURE: The patient is a 20-year-old male who woke up at 1 a.m. with abdominal pain and moved to the right lower quadrant. He had a normal white count but had a CT which showed very thickened appendix with appendicolith. FINDINGS: The patient indicated appendicitis. Had not ruptured, was removed and sent to pathology. PROCEDURE NOTE: After informed consent was obtained patient brought to the operating room, placed on table in supine position. He was sterilely prepped and draped in the normal fashion. Local lidocaine used to infiltrate the skin above the umbilicus. An incision with a number 11 blade, carried down through skin and subcutaneous tissue and the deepened down subcutaneous, bovied with electrocautery down tot he fascia. The fascia was incised with Bovie cautery and then bluntly entered the abdomen, Swept the finger around. Placed an 0 Vicryl [id number] suture and then placed an 11 mm trocar port under visualization and created a pneumoperitoneum. I placed 2 more ports in normal fashion using local lidocaine, used 11 blade for stab incision and the Versa step system all done under direct visualization; one suprapubically and one in the little left lower quadrant almost equal to the umbilicus. The patient was then placed little bit Trendelenburg, rotated a little bit left. The appendix was found under the cecum, had to carefully move the small intestine out of the way and then able to come across some minimal adhesions. Then carefully started freeing up the appendix off the small intestine and the cecum, coming across the mesoappendix with a LigaSure, clamping coagulating and transecting and in this fashion freeing the appendix up until it was only attached to the cecum and came across the appendiceal artery, clamped and coagulated this and then transected it. Once the appendix was only attached to the cecum, then switched to a 5 mm camera, brought Endo FLORY 45 2.0 mm stapler in, clamped across the base of the appendix, clamped, held for 30 seconds and then fired thereby transecting the appendix removed the stapling device. Placed a bag in the abdomen, placed the appendix in the bag and removed this through the supraumbilical incision. Placed the port back in the abdomen. Copiously irrigated with normal saline, suctioned this out. Took a picture of staple line, appeared good. Suctioned out a little bit of fluid. There was no other obvious pathology. There was no pus and then the patient was placed supine. Removed all ports under visualization, allowing pneumoperitoneum to escape closed the supraumbilical incision, closing the fascia with 0 Vicryl suture previously placed. Copiously irrigated all incisions with normal saline. Closed the two small 5 mm incisions with a single interrupted 4-0 undyed Monocryl subcuticular stitch. Closed the supraumbilical incision with 4 interrupted 4-0 undyed Monocryl subcuticular stitches. The area was clean and dried. It was then glued closed and then dressings placed. The patient then transferred to recovery room in stable condition. Sponge, instrument and needle correct at the end of the case. Job ID: [id number] Dictated Date: 04/09/2016 16:17:35 Customer Contact Representative Date: 04/10/2016 09:38:33 / coleen BOONE
== END 2016-04-09 16:40 | disposition home or self-care (01) ==
LOC: EDUNIT# 09:34 → ER 09:37 → SDC 12:43
PROVIDERS: ATTEND Surgery
DX: K35.80 Unspecified acute appendicitis (principal); Z11.2 Encounter for screening for other bacterial diseases
CPT/HCPCS: 36415; 74177; 80053; 81000; 82150; 85025; 87081; 94664; 96374